=== PATIENT | male | born 1940 | race Caucasian/White ===

== ENCOUNTER 2016-06-01 09:17 | Day surgery (SDC) | payer OTHER ==
[~2016-06-01] VITALS: Ht 167.6 cm; Wt 97.0 kg
[~2016-06-01 09:17] MED LIST: ACETAMINOPHEN650 M6 PO; ADULT LOW DOSE81 M1 PO; ASPIR 8181 M1 PO; ASPIR-LOW81 MG PO; ASPIRIN81 M1 PO; ATORVASTATIN CA40 MG PO; ATROVENT 00.5 MG/2.5 IH; BABY ASPIRIN81 M1 PO; BUSPAR10 MG PO; CALCIUM; CALCIUM + D TA1 EACH PO; CALCIUM 500 +1 EAC4 PO; CALCIUM PO; CELEXA10 M1 PO; CELEXA10 MG PO; CELEXA20 MG PO; COLACE100 MG PO; COMPAZINE10 MG PO; CONSTULOSE10 GM/15 M PO; COUMADIN,JANTOVE1 MG PO; COUMADIN,JANTOVE2 MG PO; COUMADIN,JANTOVE5 MG PO; COUMADIN,JANTOVE6 MG PO; COUMADIN3 MG PO; COUMADIN4 MG PO; COUMADIN5 MG PO; Celexa PO; Coumadin dosing per PO; DEPAKOTE SPRIN125 MG PO; DEPAKOTE125 MG PO; DEPAKOTE500 MG PO; DIOVAN160 MG PO; DULCOLAX1 EACH PR; DULCOLAX10 MG PR; EMS NITROSTAT0.4 M1 S; EMS NITROSTAT0.4 M1 SL; FENOFIBRATE54 M1 NG; FENOFIBRATE54 M1 PO; FLULAVAL; FLULAVAL IM; HYDROCHLOROTH12.5 M1 PO; HYDROCHLOROTH12.5 M3 NG; HYDRODIURIL,O12.5 M2 PO; IMDUR60 MG PO; KEPPRA1000 MG PO; KEPPRA500 MG PO; KEPPRA750 MG PO; LABETALOL HCL100 MG PO; LEVETIRACETAM1000 MG PO; LEVETIRACETAM500 MG PO; LOFIBRA54 MG PO; LOPRESSOR100 M1 PO; LUBRICANT 0.5-015 ML BOTH EYES; Levaquin PO; Lopressor PO; MAXITROL EYE O3.5 GM BOTH EYES; MULTIVITAMIN1 EAC1 PO; MYLANTA LIQUID355 M1 PO; NITROGLYCERIN0.4 MG SL; NITROSTAT,NITR0.4 M1 SL; NITROSTAT0.4 MG SL; NORVASC5 MG PO; Normodyne,Trandate PO; OMEPRAZOLE20 MG PO; OMEPRAZOLE40 M1 PO; OMEPRAZOLE40 MG PO; OSCAL 250 W/VI250 MG PO; PEPTO BISMOL262 MG PO; PNEUMOVAX 230.5 ML IM; PRILOSEC40 MG PO; PROTONIX40 MG PO; PROVENTIL,2.5 MG/0.5 IH; PROVENTIL,2.5 MG/3 M IH; Prilosec PO; RESTASIS 01 DROP/0.4 BOTH EYES; SEROQUEL12.5 MG PO; SPIRIVA1 INHALATI IH; SUCRALFATE1 GM PO; SUDAFED30 MG PO; THERAGRAN1 TABLET PO; TOPROL XL100 MG PO; TRILIPIX45 MG PO; TYLENOL REGULA325 MG PO; TYLENOL325 M1 PO; Tylenol Regular Stre PO; VITAMIN D; WARFARIN SODIUM4 MG PO; WARFARIN SODIUM5 MG PO; ZOCOR10 MG PO; ZOCOR40 MG PO; Zocor PO; [UNRECOGNIZED DRUG - OTHER] PO
[2016-06-01] MEDS ORDERED: FERROUS SULFAT325 MG PO (09:53)
[2016-06-01] MEDS ORDERED: LASIX20 MG PO (09:55)
[2016-06-01] MEDS ORDERED: CALCITRIOL0.25 MCG PO (09:56)
[2016-06-01] MEDS ORDERED: TRAZODONE HCL50 MG PO (09:58)
[2016-06-01 10:03] LABS: HEMATOCRIT 29.7 % (38.0-50.0); MCH 33.7 PG (29.0-34.0); MCV 102.1 FL (86-99); MEAN PLAT.VOLUME 9.9 uM^3 (9.0-12.4); PLATELET COUNT 217 K/uL (156-360); RBC DIS.WIDTH-CV 13.4 % (11.8-14.6); RBC DIS.WIDTH-SD 48.1 % (39-53); RED BLOOD COUNT 2.91 M/uL (4.00-5.50); WHITE BLOOD COUNT 9.7 K/uL (4.1-10.2)
[2016-06-01] MEDS ORDERED: VITAMIN C500 M1 PO (10:04)
[2016-06-01] MEDS ORDERED: VITAMIN D31000 UNI2 PO (10:05)
[2016-06-01 10:15] LABS: INTER. NORMALIZED RATIO 1.3; PROTHROMBIN TIME 13.5 (9.2-11.2)
[2016-06-01 10:19] LABS: ANION GAP 12 MEQ/L (2-14); CHLORIDE 109 MEQ/L (99-109); GFR ESTIMATE (CALCULATED) 12 mL/min/; GLUCOSE 98 mg/dL (70-99); SAMPLE HEMOLYSIS CHECK 0; SAMPLE ICTERIC CHECK 0; SAMPLE LIPEMIA CHECK 0; SODIUM 141 MEQ/L (136-147); UREA NITROGEN (BUN) 38 mg/dL (9-23)
[2016-06-01 10:28] VITALS: BP 157/84
[2016-06-01 11:04] LABS: METH RESISTANT S AUREUS PCR POSITIVE (NEGATIVE)
[2016-06-01 11:05] LABS: PROBE CHECK PASS
[2016-06-01 14:29] VITALS: BP 125/65
== END 2016-06-01 15:35 ==
LOC: SDC 09:17
PROVIDERS: Surgery
PROC: 03180ZD Bypass Left Brachial Artery to Upper Arm Vein, Open Approach (ICD-10-PCS; principal; 2016-06-01)
DX: I12.0 Hypertensive chronic kidney disease with stage 5 chronic kidney disease or end stage renal disease (principal); N18.6 End stage renal disease; G40.909 Epilepsy, unspecified, not intractable, without status epilepticus; I25.10 Atherosclerotic heart disease of native coronary artery without angina pectoris; F03.90 Unspecified dementia, unspecified severity, without behavioral disturbance, psychotic disturbance, mood disturbance, and anxiety; Z86.73 Personal history of transient ischemic attack (TIA), and cerebral infarction without residual deficits
CPT/HCPCS: 80048; 85027; 85610; 87641; J0690; J1644; J2720; J3010

== ENCOUNTER 2016-07-05 16:30 | Inpatient (IN) | payer OTHER ==
[~2016-07-05] VITALS: Ht 167.6 cm; Wt 93.5 kg
[~2016-07-05 16:30] MED LIST changes: +CALCITRIOL0.25 MCG PO; +FERROUS SULFAT325 MG PO; +LASIX20 MG PO; +TRAZODONE HCL50 MG PO; +VITAMIN C500 M1 PO; +VITAMIN D31000 UNI2 PO
[2016-07-05 17:31] LABS: EOSINOPHIL (%) 0.6 % (0-5); EOSINOPHIL COUNT 0.1 K/uL (0-0.3); HEMATOCRIT 26.7 % (38.0-50.0); IMMATURE GRANULOCYTE (%) 1.2 % (0.0-0.7); IMMATURE GRANULOCYTE COUNT 0.1 K/uL; INSTRUMENT ABS NEUTROPHIL CT 5.9 K/uL; LYMPHOCYTE COUNT 1.6 K/uL (1.0-2.8); MCH 34.2 PG (29.0-34.0); MCHC 31.1 G/DL (30.0-36.0); MCV 109.9 FL (86-99); MONOCYTE COUNT 1.6 K/uL (0-0.8); NEUTROPHIL (%) 63.6 % (45-76); NEUTROPHIL COUNT 5.9 K/uL (1.8-6.4); PLATELET COUNT 172 K/uL (156-360); RBC DIS.WIDTH-SD 56.4 % (39-53); RED BLOOD COUNT 2.43 M/uL (4.00-5.50); WHITE BLOOD COUNT 9.3 K/uL (4.1-10.2)
[2016-07-05 17:39] LABS: CHLORIDE 112 mEq/L (99-109); POTASSIUM 4.3 mEq/L (3.7-5.4); SODIUM 145 mEq/L (136-147)
[2016-07-05 17:40] LABS: GLUCOSE 101 mg/dL (70-99)
[2016-07-05 17:42] LABS: ANION GAP 11 MEQ/L (2-14)
[2016-07-05 17:44] LABS: GFR ESTIMATE (CALCULATED) 10 mL/min/
[2016-07-05 17:45] LABS: UREA NITROGEN (BUN) 50 mg/dL (9-23)
[2016-07-05 17:52] LABS: TROP-I INTERPRETATION NEGATIVE; TROPONIN-I < 0.01 ng/mL (0.0-0.30)
[2016-07-05 17:53] LABS: PROTHROMBIN TIME 46.6 (9.2-11.2); PTT 59.7 (25-32)
[2016-07-05] MEDS ORDERED: CALCIUM 600 +1 EAC2 PO (17:56)
[2016-07-05] MEDS ORDERED: COUMADIN2 MG PO (17:57)
[2016-07-05 17:59] LABS: INTER. NORMALIZED RATIO 4.4
[2016-07-05] MEDS ORDERED: MIRALAX255 GM PO (18:00)
[2016-07-05] MEDS ORDERED: OMEPRAZOLE40 M1 PO (18:02)
[2016-07-05] MEDS ORDERED: MIRTAZAPINE7.5 MG PO (18:03)
[2016-07-05] MEDS ORDERED: COUMADIN3 MG PO (18:05)
[2016-07-05] MEDS ORDERED: REFRESH TEARS15 ML BOTH EYES (18:08)
[2016-07-05] MEDS ORDERED: DUONEB 2.5-0.5 M3 ML AEROSOL (18:09)
[2016-07-05 18:10] LABS: INFLUENZA A VIRAL ANTIGEN NEGATIVE; INFLUENZA B VIRAL ANTIGEN POSITIVE
[2016-07-05] MEDS ORDERED: BISACODYL SUPP10 MG PR (18:10)
[2016-07-05] MEDS ORDERED: MEPHYTON5 MG PO (18:11)
[2016-07-05] MEDS ORDERED: NORCO 5/3251 TABLET PO (18:12)
[2016-07-06] VITALS (8 sets, daily range): BP systolic 120–141; BP diastolic 60–72
[2016-07-06 06:05] LABS: INTER. NORMALIZED RATIO 4.6; PROTHROMBIN TIME 49.2 (9.2-11.2)
[2016-07-07] VITALS (9 sets, daily range): BP systolic 113–150; BP diastolic 59–88
[2016-07-07 07:14] LABS: INTER. NORMALIZED RATIO 2.9; PROTHROMBIN TIME 30.2 (9.2-11.2)
[2016-07-07 07:26] LABS: ALKALINE PHOSPHATASE 44 IU/L (3-129); ANION GAP 12 MEQ/L (2-14); CHLORIDE 112 MEQ/L (99-109); GFR ESTIMATE (CALCULATED) 12 mL/min/; GLUCOSE 98 mg/dL (70-99); MAGNESIUM 2.1 mg/dl (1.3-2.7); POTASSIUM 4.2 MEQ/L (3.7-5.4); SAMPLE HEMOLYSIS CHECK 0; SAMPLE ICTERIC CHECK 0; SAMPLE LIPEMIA CHECK 0; SODIUM 144 MEQ/L (136-147); TOTAL BILIRUBIN 0.3 MG/DL (0.0-1.0); UREA NITROGEN (BUN) 49 mg/dL (9-23)
[2016-07-07 08:46] LABS: HEMATOCRIT 24.4 % (38.0-50.0); MCH 33.9 PG (29.0-34.0); MCHC 30.7 G/DL (30.0-36.0); MCV 110.4 FL (86-99); MEAN PLAT.VOLUME 10.3 uM^3 (9.0-12.4); PLATELET COUNT 194 K/uL (156-360); RBC DIS.WIDTH-SD 56.1 % (39-53); RED BLOOD COUNT 2.21 M/uL (4.00-5.50); WHITE BLOOD COUNT 7.7 K/uL (4.1-10.2)
[2016-07-07 08:57] LABS: EOSINOPHIL (%) 4.3 % (0-5); EOSINOPHIL COUNT 0.3 K/uL (0-0.3); IMMATURE GRANULOCYTE COUNT 0.4 K/uL; INSTRUMENT ABS NEUTROPHIL CT 4.1 K/uL; LYMPHOCYTE COUNT 1.7 K/uL (1.0-2.8); MONOCYTE (%) 15.4 % (3-12); MONOCYTE COUNT 1.2 K/uL (0-0.8); NEUTROPHIL (%) 53.5 % (45-76); NEUTROPHIL COUNT 4.1 K/uL (1.8-6.4); NRBC (%) 0.4 /100 WBC (0-0)
[2016-07-07 20:13] LABS: HEMATOCRIT 25.3 % (38.0-50.0)
[2016-07-07 20:14] LABS: MCV 105.4 FL (86-99)
[2016-07-08 05:07] VITALS: BP 122/56
[2016-07-08 07:17] LABS: BASOPHIL COUNT 0.1 K/uL (0-0.1); EOSINOPHIL (%) 5.4 % (0-5); EOSINOPHIL COUNT 0.5 K/uL (0-0.3); HEMATOCRIT 25.3 % (38.0-50.0); IMMATURE GRANULOCYTE (%) 4.7 % (0.0-0.7); IMMATURE GRANULOCYTE COUNT 0.4 K/uL; INSTRUMENT ABS NEUTROPHIL CT 4.9 K/uL; LYMPHOCYTE COUNT 1.8 K/uL (1.0-2.8); MCH 32.8 PG (29.0-34.0); MCHC 30.8 G/DL (30.0-36.0); MCV 106.3 FL (86-99); MEAN PLAT.VOLUME 10.3 uM^3 (9.0-12.4); MONOCYTE (%) 12.4 % (3-12); MONOCYTE COUNT 1.1 K/uL (0-0.8); NEUTROPHIL (%) 55.8 % (45-76); NEUTROPHIL COUNT 4.9 K/uL (1.8-6.4); PLATELET COUNT 196 K/uL (156-360); RBC DIS.WIDTH-CV 17.6 % (11.8-14.6); RED BLOOD COUNT 2.38 M/uL (4.00-5.50); WHITE BLOOD COUNT 8.7 K/uL (4.1-10.2)
[2016-07-08 07:32] LABS: INTER. NORMALIZED RATIO 2.5
[2016-07-08 08:00] VITALS: BP 130/62
[2016-07-08 08:03] LABS: ALKALINE PHOSPHATASE 42 IU/L (3-129); ANION GAP 11 MEQ/L (2-14); CHLORIDE 115 MEQ/L (99-109); GFR ESTIMATE (CALCULATED) 11 mL/min/; GLUCOSE 81 mg/dL (70-99); POTASSIUM 4.4 MEQ/L (3.7-5.4); SAMPLE HEMOLYSIS CHECK 0; SAMPLE ICTERIC CHECK 0; SAMPLE LIPEMIA CHECK 0; SODIUM 147 MEQ/L (136-147); UREA NITROGEN (BUN) 51 mg/dL (9-23)
[2016-07-08 08:04] LABS: TOTAL BILIRUBIN 0.2 MG/DL (0.0-1.0)
[2016-07-08 12:00] VITALS: BP 122/60
[2016-07-08 16:00] VITALS: BP 136/62
[2016-07-08 20:29] VITALS: BP 136/62
[2016-07-09] VITALS (15 sets, daily range): BP systolic 115–161; BP diastolic 56–88
[2016-07-09 08:26] LABS: ALKALINE PHOSPHATASE 51 IU/L (3-129); ANION GAP 10 MEQ/L (2-14); CHLORIDE 113 MEQ/L (99-109); GFR ESTIMATE (CALCULATED) 11 mL/min/; GLUCOSE 95 mg/dL (70-99); POTASSIUM 4.3 MEQ/L (3.7-5.4); SAMPLE HEMOLYSIS CHECK 0; SAMPLE ICTERIC CHECK 0; SAMPLE LIPEMIA CHECK 0; SODIUM 144 MEQ/L (136-147); UREA NITROGEN (BUN) 49 mg/dL (9-23)
[2016-07-09 08:27] LABS: HEMATOCRIT 33.8 % (38.0-50.0); MCH 32.1 PG (29.0-34.0); MEAN PLAT.VOLUME 9.8 uM^3 (9.0-12.4); PLATELET COUNT 230 K/uL (156-360); RBC DIS.WIDTH-CV 17.6 % (11.8-14.6); RBC DIS.WIDTH-SD 65.4 % (39-53)
[2016-07-09 08:28] LABS: MCV 100.6 FL (86-99); RED BLOOD COUNT 3.36 M/uL (4.00-5.50); TOTAL BILIRUBIN 0.3 MG/DL (0.0-1.0)
[2016-07-09 08:35] LABS: INTER. NORMALIZED RATIO 2.2; PROTHROMBIN TIME 23.1 (9.2-11.2)
[2016-07-09 12:06] LABS: ABS NEUTROPHIL COUNT 5.8; ANISOCYTOSIS 1+; ATYPICAL LYMPHOCYTE 0.9 %; BAND NEUTROPHILS 0.9 % (0-8.0); EOSINOPHIL ABS CT 0.3; EOSINOPHILS 3.7 % (0-5.0); INSTRUMENT ABS NEUTROPHIL CT 5.2 K/uL; LYMPHOCYTES 15.9 % (15.0-45.0); METAMYELOCYTES 2.8 %; PLAT.SUFFICIENCY ADEQUATE; POLYCHROMASIA 1+; SEG.NEUTROPHILS 63.6 % (46.0-76.0)
[2016-07-10 04:09] VITALS: BP 138/76
[2016-07-10 08:29] VITALS: BP 122/94
[2016-07-10 09:07] LABS: HEMATOCRIT 33.1 % (38.0-50.0); MCH 32.4 PG (29.0-34.0); MCV 101.2 FL (86-99); MEAN PLAT.VOLUME 9.8 uM^3 (9.0-12.4); NRBC (%) 0.2 /100 WBC (0-0); PLATELET COUNT 226 K/uL (156-360); RBC DIS.WIDTH-CV 17.7 % (11.8-14.6); RBC DIS.WIDTH-SD 66.3 % (39-53); RED BLOOD COUNT 3.27 M/uL (4.00-5.50); WHITE BLOOD COUNT 8.8 K/uL (4.1-10.2)
[2016-07-10 09:30] LABS: INTER. NORMALIZED RATIO 1.7; PROTHROMBIN TIME 17.3 (9.2-11.2)
[2016-07-10 10:53] LABS: ANION GAP 11 MEQ/L (2-14); CHLORIDE 113 MEQ/L (99-109); GFR ESTIMATE (CALCULATED) 12 mL/min/; GLUCOSE 85 mg/dL (70-99); POTASSIUM 4.8 MEQ/L (3.7-5.4); SAMPLE HEMOLYSIS CHECK 0; SAMPLE ICTERIC CHECK 0; SAMPLE LIPEMIA CHECK 0; SODIUM 144 MEQ/L (136-147); UREA NITROGEN (BUN) 52 mg/dL (9-23)
[2016-07-10 12:29] VITALS: BP 139/62
[2016-07-10 16:53] VITALS: BP 135/72
[2016-07-10 20:37] VITALS: BP 143/68
[2016-07-10 23:51] VITALS: BP 118/58
[2016-07-11 04:16] VITALS: BP 149/70
[2016-07-11 07:35] LABS: HEMATOCRIT 34.2 % (38.0-50.0); MCH 31.7 PG (29.0-34.0); MCHC 31.3 G/DL (30.0-36.0); MCV 101.2 FL (86-99); MEAN PLAT.VOLUME 9.7 uM^3 (9.0-12.4); NRBC (%) 0.2 /100 WBC (0-0); PLATELET COUNT 246 K/uL (156-360); RBC DIS.WIDTH-CV 17.2 % (11.8-14.6); RBC DIS.WIDTH-SD 63.6 % (39-53); RED BLOOD COUNT 3.38 M/uL (4.00-5.50); WHITE BLOOD COUNT 8.9 K/uL (4.1-10.2)
[2016-07-11 07:44] LABS: INTER. NORMALIZED RATIO 1.9; PROTHROMBIN TIME 19.2 (9.2-11.2)
[2016-07-11 07:58] LABS: ANION GAP 10 MEQ/L (2-14); CHLORIDE 112 MEQ/L (99-109); GFR ESTIMATE (CALCULATED) 11 mL/min/; GLUCOSE 89 mg/dL (70-99); POTASSIUM 4.9 MEQ/L (3.7-5.4); SAMPLE HEMOLYSIS CHECK 0; SAMPLE ICTERIC CHECK 0; SAMPLE LIPEMIA CHECK 0; SODIUM 143 MEQ/L (136-147); UREA NITROGEN (BUN) 53 mg/dL (9-23)
[2016-07-11 08:00] VITALS: BP 151/82
[2016-07-11 12:00] VITALS: BP 167/80
[2016-07-11 16:00] VITALS: BP 120/62
[2016-07-11 20:00] VITALS: BP 136/65
[2016-07-12 00:13] VITALS: BP 132/84
[2016-07-12 04:00] VITALS: BP 130/64
[2016-07-12 07:27] LABS: ANION GAP 9 MEQ/L (2-14); CHLORIDE 111 MEQ/L (99-109); GFR ESTIMATE (CALCULATED) 12 mL/min/; GLUCOSE 76 mg/dL (70-99); SAMPLE HEMOLYSIS CHECK 0; SAMPLE ICTERIC CHECK 0; SAMPLE LIPEMIA CHECK 0; SODIUM 141 MEQ/L (136-147); UREA NITROGEN (BUN) 61 mg/dL (9-23)
[2016-07-12 07:35] LABS: INTER. NORMALIZED RATIO 2.4; PROTHROMBIN TIME 24.6 (9.2-11.2)
[2016-07-12 08:00] VITALS: BP 120/67
[2016-07-12 12:26] VITALS: BP 128/60
== END 2016-07-12 13:10 | DRG 189 ==
LOC: EME 16:30 → EDOF 21:55 → 4SOUTH 21:55
PROVIDERS: Emergency Medicine; Internal Medicine; Internal Medicine Nephrology
PROC: 30233N1 Transfusion of Nonautologous Red Blood Cells into Peripheral Vein, Percutaneous Approach (ICD-10-PCS; principal; 2016-07-09)
DX: J96.91 Respiratory failure, unspecified with hypoxia (principal); J10.00 Influenza due to other identified influenza virus with unspecified type of pneumonia; N17.9 Acute kidney failure, unspecified; I12.0 Hypertensive chronic kidney disease with stage 5 chronic kidney disease or end stage renal disease; I69.354 Hemiplegia and hemiparesis following cerebral infarction affecting left non-dominant side; N18.5 Chronic kidney disease, stage 5; R80.9 Proteinuria, unspecified; I25.10 Atherosclerotic heart disease of native coronary artery without angina pectoris; J44.9 Chronic obstructive pulmonary disease, unspecified; I25.2 Old myocardial infarction; K21.9 Gastro-esophageal reflux disease without esophagitis; I48.2 Chronic atrial fibrillation; F32.9 Major depressive disorder, single episode, unspecified; F41.9 Anxiety disorder, unspecified; E78.5 Hyperlipidemia, unspecified; J18.9 Pneumonia, unspecified organism; I50.9 Heart failure, unspecified; D64.9 Anemia, unspecified; E11.22 Type 2 diabetes mellitus with diabetic chronic kidney disease
CPT/HCPCS: 71010; 71020; 80048; 80053; 80069; 82272; 83735; 84100; 84484; 85014; 85018; 85025; 85027; 85610; 85730; 86850; 86900; 86901; 86920; 87040; 87502; 92610 GN; 93005; 94640; 94640 76; 94760; 94799; 99202; 99281; 99285; J0456; J0692; J0881; J1940; J1956; J3370; J7050; P9016

== ENCOUNTER 2016-09-01 15:05 | Observation (INO) | payer OTHER ==
[~2016-09-01] VITALS: Ht 167.6 cm; Wt 90.1 kg
[~2016-09-01 15:05] MED LIST changes: +BISACODYL SUPP10 MG PR; +CALCIUM 600 +1 EAC2 PO; +COUMADIN2 MG PO; +DUONEB 2.5-0.5 M3 ML AEROSOL; +MEPHYTON5 MG PO; +MIRALAX255 GM PO; +MIRTAZAPINE7.5 MG PO; +NORCO 5/3251 TABLET PO; +REFRESH TEARS15 ML BOTH EYES
[2016-09-01 15:45] LABS: HEMATOCRIT 33.6 % (38.0-50.0); MCH 33.8 PG (29.0-34.0); MCHC 32.7 G/DL (30.0-36.0); MCV 103.4 FL (86-99); MEAN PLAT.VOLUME 9.4 uM^3 (9.0-12.4); NRBC (%) 0.3 /100 WBC (0-0); PLATELET COUNT 301 K/uL (156-360); RBC DIS.WIDTH-CV 16.5 % (11.8-14.6); RBC DIS.WIDTH-SD 61.1 % (39-53); RED BLOOD COUNT 3.25 M/uL (4.00-5.50); WHITE BLOOD COUNT 11.5 K/uL (4.1-10.2)
[2016-09-01 15:53] LABS: CHLORIDE 97 mEq/L (99-109); SODIUM 137 mEq/L (136-147)
[2016-09-01 15:55] LABS: GLUCOSE 111 mg/dL (70-99)
[2016-09-01 15:56] LABS: ANION GAP 13 MEQ/L (2-14)
[2016-09-01 15:59] LABS: GFR ESTIMATE (CALCULATED) 18 mL/min/
[2016-09-01 16:00] LABS: UREA NITROGEN (BUN) 15 mg/dL (9-23)
[2016-09-01 16:07] LABS: TROP-I INTERPRETATION NEGATIVE; TROPONIN-I 0.02 ng/mL (0.0-0.30)
[2016-09-01] MEDS ORDERED: AMLODIPINE BESYL5 MG PO (17:06)
[2016-09-01] MEDS ORDERED: ROCEPHIN1000 MG IM (17:09)
[2016-09-01] MEDS ORDERED: COUMADIN1 MG PO (17:10)
[2016-09-01] MEDS ORDERED: NORCO 5/3251 TABLET PO (17:13)
[2016-09-01 21:05] VITALS: BP 121/59
[2016-09-01 23:33] VITALS: BP 94/54
[2016-09-02 00:07] LABS: TROP-I INTERPRETATION NEGATIVE; TROPONIN-I < 0.01 ng/mL (0.0-0.30)
[2016-09-02 03:58] VITALS: BP 124/58
[2016-09-02 07:58] LABS: BASOPHIL COUNT 0.1 K/uL (0-0.1); EOSINOPHIL (%) 3.7 % (0-5); EOSINOPHIL COUNT 0.3 K/uL (0-0.3); HEMATOCRIT 30.4 % (38.0-50.0); IMMATURE GRANULOCYTE (%) 1.2 % (0.0-0.7); IMMATURE GRANULOCYTE COUNT 0.1 K/uL; INSTRUMENT ABS NEUTROPHIL CT 5.2 K/uL; LYMPHOCYTE COUNT 2.3 K/uL (1.0-2.8); MCH 33.6 PG (29.0-34.0); MCHC 31.9 G/DL (30.0-36.0); MCV 105.2 FL (86-99); MEAN PLAT.VOLUME 9.5 uM^3 (9.0-12.4); MONOCYTE (%) 12.2 % (3-12); MONOCYTE COUNT 1.1 K/uL (0-0.8); NEUTROPHIL (%) 56.7 % (45-76); NEUTROPHIL COUNT 5.2 K/uL (1.8-6.4); NRBC (%) 0.2 /100 WBC (0-0); PLATELET COUNT 271 K/uL (156-360); RBC DIS.WIDTH-CV 16.5 % (11.8-14.6); RBC DIS.WIDTH-SD 62.4 % (39-53); RED BLOOD COUNT 2.89 M/uL (4.00-5.50); WHITE BLOOD COUNT 9.1 K/uL (4.1-10.2)
[2016-09-02 08:17] LABS: ALKALINE PHOSPHATASE 76 IU/L (3-129); ANION GAP 13 MEQ/L (2-14); CHLORIDE 97 MEQ/L (99-109); GFR ESTIMATE (CALCULATED) 12 mL/min/; GLUCOSE 95 mg/dL (70-99); POTASSIUM 4.5 MEQ/L (3.7-5.4); SAMPLE HEMOLYSIS CHECK 0; SAMPLE ICTERIC CHECK 0; SAMPLE LIPEMIA CHECK 0; SODIUM 139 MEQ/L (136-147); TOTAL BILIRUBIN 0.2 MG/DL (0.0-1.0); TROP-I INTERPRETATION NEGATIVE; TROPONIN-I < 0.01 ng/mL (0.0-0.30)
[2016-09-02 08:19] LABS: UREA NITROGEN (BUN) 27 mg/dL (9-23)
[2016-09-02 08:30] VITALS: BP 110/54
[2016-09-02 11:19] VITALS: BP 90/50
[2016-09-02 11:31] LABS: METH RESISTANT S AUREUS PCR POSITIVE (NEGATIVE)
[2016-09-02 11:34] LABS: PROBE CHECK PASS
[2016-09-02 15:38] VITALS: BP 141/60
[2016-09-02 17:06] LABS: TROP-I INTERPRETATION NEGATIVE; TROPONIN-I < 0.01 ng/mL (0.0-0.30)
[2016-09-02 19:24] VITALS: BP 110/60
== END 2016-09-02 21:07 ==
LOC: EME 15:05 → 5WEST 19:39 → EDOF 19:39 → 5WEST 20:45
PROVIDERS: Emergency Medicine; Internal Medicine
DX: R07.89 Other chest pain (principal); I48.2 Chronic atrial fibrillation; R06.02 Shortness of breath; I12.0 Hypertensive chronic kidney disease with stage 5 chronic kidney disease or end stage renal disease; N18.6 End stage renal disease; Z99.2 Dependence on renal dialysis; J06.9 Acute upper respiratory infection, unspecified; I69.354 Hemiplegia and hemiparesis following cerebral infarction affecting left non-dominant side; D63.1 Anemia in chronic kidney disease
CPT/HCPCS: 71010; 80048; 80053; 83880; 84484; 85025; 85027; 85610; 87641; 93005; 94640; 94640 76; 94799; 99202; 99281; 99285; G0378; J0696

== ENCOUNTER 2016-10-04 11:18 | Observation (INO) | payer OTHER ==
[~2016-10-04] VITALS: Ht 167.6 cm; Wt 91.0 kg
[~2016-10-04 11:18] MED LIST changes: +AMLODIPINE BESYL5 MG PO; +COUMADIN1 MG PO; +ROCEPHIN1000 MG IM
[2016-10-04 13:29] LABS: BASOPHIL COUNT 0.1 K/uL (0-0.1); EOSINOPHIL (%) 4.7 % (0-5); EOSINOPHIL COUNT 0.5 K/uL (0-0.3); HEMATOCRIT 30.3 % (38.0-50.0); IMMATURE GRANULOCYTE (%) 1.9 % (0.0-0.7); IMMATURE GRANULOCYTE COUNT 0.2 K/uL; INSTRUMENT ABS NEUTROPHIL CT 5.3 K/uL; LYMPHOCYTE COUNT 2.5 K/uL (1.0-2.8); MCH 35.1 PG (29.0-34.0); MCHC 32.7 G/DL (30.0-36.0); MCV 107.4 FL (86-99); MEAN PLAT.VOLUME 9.1 uM^3 (9.0-12.4); MONOCYTE (%) 12.8 % (3-12); MONOCYTE COUNT 1.3 K/uL (0-0.8); NEUTROPHIL COUNT 5.3 K/uL (1.8-6.4); NRBC (%) 0.4 /100 WBC (0-0); PLATELET COUNT 268 K/uL (156-360); RBC DIS.WIDTH-CV 15.1 % (11.8-14.6); RBC DIS.WIDTH-SD 58.9 % (39-53); RED BLOOD COUNT 2.82 M/uL (4.00-5.50); WHITE BLOOD COUNT 9.8 K/uL (4.1-10.2)
[2016-10-04 13:37] LABS: CHLORIDE 100 mEq/L (99-109); POTASSIUM 4.3 mEq/L (3.7-5.4); SODIUM 140 mEq/L (136-147)
[2016-10-04 13:39] LABS: GLUCOSE 80 mg/dL (70-99)
[2016-10-04 13:40] LABS: ANION GAP 14 MEQ/L (2-14); PROTHROMBIN TIME 36.5 (9.2-11.2); PTT 43.9 (25-32)
[2016-10-04 13:43] LABS: GFR ESTIMATE (CALCULATED) 8 mL/min/
[2016-10-04 13:44] LABS: UREA NITROGEN (BUN) 47 mg/dL (9-23)
[2016-10-04 13:45] LABS: CREATINE KINASE 13 IU/L (1-294); TOTAL CK 13 IU/L (1-294)
[2016-10-04 13:46] LABS: INTER. NORMALIZED RATIO 3.4
[2016-10-04 13:51] LABS: TROP-I INTERPRETATION NEGATIVE; TROPONIN-I < 0.01 ng/mL (0.0-0.30)
[2016-10-04 13:52] LABS: CK-MB 0.7 ng/mL (0.0-4.9)
[2016-10-04] MEDS ORDERED: WARFARIN SODIUM5 MG PO (16:18)
[2016-10-04] MEDS ORDERED: MIRTAZAPINE15 MG PO (16:21)
[2016-10-04] MEDS ORDERED: KEPPRA500 MG PO (16:23)
[2016-10-04] MEDS ORDERED: NORCO 5/3251 TABLET PO (16:26)
[2016-10-04 20:18] LABS: TROP-I INTERPRETATION NEGATIVE; TROPONIN-I < 0.01 ng/mL (0.0-0.30)
[2016-10-04 20:30] VITALS: BP 112/65
[2016-10-04 23:31] VITALS: BP 100/50
[2016-10-05 02:28] LABS: TROP-I INTERPRETATION NEGATIVE; TROPONIN-I < 0.01 ng/mL (0.0-0.30)
[2016-10-05 03:07] VITALS: BP 139/63
[2016-10-05 07:46] LABS: HEMATOCRIT 28.6 % (38.0-50.0); MCH 35.7 PG (29.0-34.0); MCHC 32.9 G/DL (30.0-36.0); MCV 108.7 FL (86-99); MEAN PLAT.VOLUME 9.1 uM^3 (9.0-12.4); NRBC (%) 0.3 /100 WBC (0-0); PLATELET COUNT 257 K/uL (156-360); RBC DIS.WIDTH-CV 15.6 % (11.8-14.6); RBC DIS.WIDTH-SD 60.8 % (39-53); RED BLOOD COUNT 2.63 M/uL (4.00-5.50); WHITE BLOOD COUNT 9.3 K/uL (4.1-10.2)
[2016-10-05 07:54] LABS: INTER. NORMALIZED RATIO 3.3; PROTHROMBIN TIME 34.4 (9.2-11.2)
[2016-10-05 08:12] LABS: ANION GAP 14 MEQ/L (2-14); CHLORIDE 100 MEQ/L (99-109); GFR ESTIMATE (CALCULATED) 12 mL/min/; GLUCOSE 75 mg/dL (70-99); POTASSIUM 4.5 MEQ/L (3.7-5.4); SAMPLE HEMOLYSIS CHECK 0; SAMPLE ICTERIC CHECK 0; SAMPLE LIPEMIA CHECK 0; SODIUM 142 MEQ/L (136-147); UREA NITROGEN (BUN) 26 mg/dL (9-23)
[2016-10-05 08:15] LABS: TROP-I INTERPRETATION NEGATIVE; TROPONIN-I 0.01 ng/mL (0.0-0.30)
[2016-10-05 09:20] VITALS: BP 114/57
[2016-10-05 12:00] VITALS: BP 116/63
[2016-10-05 16:00] VITALS: BP 113/63
== END 2016-10-05 17:17 ==
LOC: EME 11:18 → 5WEST 14:00 → EDOF 14:00 → 5WEST 19:11
PROVIDERS: Emergency Medicine; Family Medicine
PROC: 5A1D00Z (ICD-10-PCS; principal; 2016-10-04)
DX: R07.9 Chest pain, unspecified (principal); I12.0 Hypertensive chronic kidney disease with stage 5 chronic kidney disease or end stage renal disease; N18.6 End stage renal disease; Z99.2 Dependence on renal dialysis; I48.0 Paroxysmal atrial fibrillation; I69.354 Hemiplegia and hemiparesis following cerebral infarction affecting left non-dominant side; I69.392 Facial weakness following cerebral infarction; I69.320 Aphasia following cerebral infarction; L03.114 Cellulitis of left upper limb; K21.9 Gastro-esophageal reflux disease without esophagitis; J44.9 Chronic obstructive pulmonary disease, unspecified; E78.5 Hyperlipidemia, unspecified; I25.2 Old myocardial infarction; G40.909 Epilepsy, unspecified, not intractable, without status epilepticus; D64.9 Anemia, unspecified; G89.4 Chronic pain syndrome; K59.00 Constipation, unspecified; Z79.01 Long term (current) use of anticoagulants; F32.9 Major depressive disorder, single episode, unspecified
CPT/HCPCS: 71010; 80048; 82550; 82553; 84484; 85025; 85027; 85610; 85730; 93005; 99281; 99285; G0257; G0378

== ENCOUNTER 2016-12-10 15:35 | Observation (INO) | payer OTHER ==
[~2016-12-10] VITALS: Ht 167.6 cm; Wt 99.1 kg
[~2016-12-10 15:35] MED LIST changes: +MIRTAZAPINE15 MG PO
[2016-12-10 16:05] LABS: BASOPHIL COUNT 0.1 K/uL (0-0.1); EOSINOPHIL COUNT 0.5 K/uL (0-0.3); HEMATOCRIT 36.2 % (38.0-50.0); IMMATURE GRANULOCYTE (%) 0.5 % (0.0-0.7); INSTRUMENT ABS NEUTROPHIL CT 3.5 K/uL; LYMPHOCYTE COUNT 2.5 K/uL (1.0-2.8); MCH 35.6 PG (29.0-34.0); MCHC 33.1 G/DL (30.0-36.0); MCV 107.4 FL (86-99); MEAN PLAT.VOLUME 9.1 uM^3 (9.0-12.4); MONOCYTE (%) 12.1 % (3-12); MONOCYTE COUNT 0.9 K/uL (0-0.8); NEUTROPHIL (%) 46.6 % (45-76); NEUTROPHIL COUNT 3.5 K/uL (1.8-6.4); PLATELET COUNT 257 K/uL (156-360); RBC DIS.WIDTH-CV 14.1 % (11.8-14.6); RED BLOOD COUNT 3.37 M/uL (4.00-5.50); WHITE BLOOD COUNT 7.4 K/uL (4.1-10.2)
[2016-12-10 16:11] LABS: POINT-OF-CARE METER ID UU13113702
[2016-12-10 16:16] LABS: AMYLASE 49 IU/L (1-118); CHLORIDE 95 mEq/L (99-109); POTASSIUM 4.4 mEq/L (3.7-5.4); SODIUM 137 mEq/L (136-147)
[2016-12-10 16:18] LABS: GLUCOSE 87 mg/dL (70-99)
[2016-12-10 16:19] LABS: ANION GAP 12 MEQ/L (2-14)
[2016-12-10 16:21] LABS: SERUM ETHYL ALCOHOL < 10 mg/dL
[2016-12-10 16:22] LABS: GFR ESTIMATE (CALCULATED) 18 mL/min/; UREA NITROGEN (BUN) 19 mg/dL (9-23)
[2016-12-10 16:25] LABS: LIPASE 55 U/L (1.0-51.0)
[2016-12-10 16:29] LABS: TROP-I INTERPRETATION NEGATIVE; TROPONIN-I 0.01 ng/mL (0.0-0.30)
[2016-12-10 16:30] LABS: INTER. NORMALIZED RATIO 2.9; PROTHROMBIN TIME 32.7 SEC (10.2-12.9)
[2016-12-10 16:32] LABS: PTT 43.5 SEC (25-37)
[2016-12-10] MEDS ORDERED: ISOSORBIDE DINI30 MG PO (19:23)
[2016-12-10] MEDS ORDERED: LOPRESSOR50 MG PO (19:23)
[2016-12-10] MEDS ORDERED: CALPHRON667 MG PO (19:26)
[2016-12-10 22:17] VITALS: BP 110/54
[2016-12-11 00:20] VITALS: BP 130/63
[2016-12-11 01:30] VITALS: BP 133/74
[2016-12-11 04:20] VITALS: BP 128/57
[2016-12-11 05:33] LABS: HEMATOCRIT 33.8 % (38.0-50.0); MCH 35.9 PG (29.0-34.0); MCHC 33.1 G/DL (30.0-36.0); MCV 108.3 FL (86-99); MEAN PLAT.VOLUME 9.3 uM^3 (9.0-12.4); PLATELET COUNT 240 K/uL (156-360); RBC DIS.WIDTH-CV 14.5 % (11.8-14.6); RBC DIS.WIDTH-SD 55.5 % (39-53); RED BLOOD COUNT 3.12 M/uL (4.00-5.50); WHITE BLOOD COUNT 7.1 K/uL (4.1-10.2)
[2016-12-11 05:38] LABS: METH RESISTANT S AUREUS PCR POSITIVE (NEGATIVE)
[2016-12-11 05:40] LABS: PROBE CHECK PASS
[2016-12-11 05:56] LABS: ALKALINE PHOSPHATASE 72 IU/L (3-129); ANION GAP 10 MEQ/L (2-14); CHLORIDE 98 MEQ/L (99-109); GLUCOSE 73 mg/dL (70-99); SAMPLE HEMOLYSIS CHECK 0; SAMPLE ICTERIC CHECK 0; SAMPLE LIPEMIA CHECK 0; SODIUM 140 MEQ/L (136-147); TOTAL BILIRUBIN 0.3 MG/DL (0.0-1.0)
[2016-12-11 05:58] LABS: GFR ESTIMATE (CALCULATED) 12 mL/min/; POTASSIUM 5.4 MEQ/L (3.7-5.4); UREA NITROGEN (BUN) 31 mg/dL (9-23)
[2016-12-11 06:02] LABS: INTER. NORMALIZED RATIO 2.8; PROTHROMBIN TIME 31.5 SEC (10.2-12.9)
[2016-12-11 07:58] VITALS: BP 124/58
[2016-12-11 12:08] VITALS: BP 109/52
[2016-12-11] MEDS ORDERED: FUROSEMIDE20 MG PO (14:57)
[2016-12-11] MEDS ORDERED: DUONEB 2.5-0.5 M3 ML AEROSOL (14:57)
[2016-12-11] MEDS ORDERED: ASCORBIC ACID500 M3 PO (14:57)
[2016-12-11] MEDS ORDERED: HYDROCODON-ACE1 EAC7 PO (14:57)
[2016-12-11] MEDS ORDERED: AMLODIPINE BESYL5 MG PO (14:57)
== END 2016-12-11 16:41 ==
LOC: EME → EDBD 15:35 → EDOF 19:40 → ENRESERV 19:43 → 5WEST 20:51
PROVIDERS: Emergency Medicine; Internal Medicine
DX: G45.9 Transient cerebral ischemic attack, unspecified (principal); R55 Syncope and collapse; I48.2 Chronic atrial fibrillation; Z79.01 Long term (current) use of anticoagulants; I12.0 Hypertensive chronic kidney disease with stage 5 chronic kidney disease or end stage renal disease; E11.22 Type 2 diabetes mellitus with diabetic chronic kidney disease; N18.6 End stage renal disease; Z99.2 Dependence on renal dialysis; I69.354 Hemiplegia and hemiparesis following cerebral infarction affecting left non-dominant side; E03.9 Hypothyroidism, unspecified; N40.0 Benign prostatic hyperplasia without lower urinary tract symptoms; E66.9 Obesity, unspecified; Z68.35 Body mass index [BMI] 35.0-35.9, adult; G25.81 Restless legs syndrome; G89.4 Chronic pain syndrome; E78.5 Hyperlipidemia, unspecified; G40.909 Epilepsy, unspecified, not intractable, without status epilepticus; M19.90 Unspecified osteoarthritis, unspecified site; Z79.82 Long term (current) use of aspirin; Z74.01 Bed confinement status; Z88.0 Allergy status to penicillin; Z91.018 Allergy to other foods
CPT/HCPCS: 70450; 71010; 80048; 80053; 81003; 82150; 82948; 83690; 84484; 85025; 85027; 85610; 85730; 86850; 86900; 86901; 87641; 93005; 93880; 99202; 99281; 99285; G0378; G0480

== ENCOUNTER 2016-12-31 03:32 | Emergency (ER) | payer OTHER ==
[~2016-12-31] VITALS: Ht 167.6 cm; Wt 100.0 kg
[~2016-12-31 03:32] MED LIST changes: +ASCORBIC ACID500 M3 PO; +CALPHRON667 MG PO; +FUROSEMIDE20 MG PO; +HYDROCODON-ACE1 EAC7 PO; +ISOSORBIDE DINI30 MG PO; +LOPRESSOR50 MG PO
[2016-12-31 04:21] LABS: HEMATOCRIT 35.3 % (38.0-50.0); MCH 35.8 PG (29.0-34.0); MCHC 33.7 G/DL (30.0-36.0); MCV 106.3 FL (86-99); MEAN PLAT.VOLUME 9.2 uM^3 (9.0-12.4); NRBC (%) 0.2 /100 WBC (0-0); PLATELET COUNT 233 K/uL (156-360); RBC DIS.WIDTH-CV 14.7 % (11.8-14.6); RBC DIS.WIDTH-SD 57.9 % (39-53); RED BLOOD COUNT 3.32 M/uL (4.00-5.50); WHITE BLOOD COUNT 12.1 K/uL (4.1-10.2)
[2016-12-31 04:33] LABS: CHLORIDE 100 mEq/L (99-109); SODIUM 140 mEq/L (136-147)
[2016-12-31 04:34] LABS: GLUCOSE 109 mg/dL (70-99)
[2016-12-31 04:36] LABS: ANION GAP 18 MEQ/L (2-14)
[2016-12-31 04:38] LABS: GFR ESTIMATE (CALCULATED) 8 mL/min/
[2016-12-31 04:39] LABS: UREA NITROGEN (BUN) 47 mg/dL (9-23)
[2016-12-31 04:43] LABS: TROP-I INTERPRETATION NEGATIVE; TROPONIN-I 0.01 ng/mL (0.0-0.30)
[2016-12-31] MEDS ORDERED: ZITHROMAX Z-PA250 MG PO (05:30)
[2016-12-31 07:36] VITALS: BP 111/51
== END 2016-12-31 09:12 ==
LOC: EME → EDBD 03:32 → EME 03:32
PROVIDERS: Emergency Medicine
DX: I11.0 Hypertensive heart disease with heart failure (principal); I50.9 Heart failure, unspecified; J44.0 Chronic obstructive pulmonary disease with (acute) lower respiratory infection; J20.9 Acute bronchitis, unspecified; I12.0 Hypertensive chronic kidney disease with stage 5 chronic kidney disease or end stage renal disease; N18.6 End stage renal disease; Z99.2 Dependence on renal dialysis; F03.90 Unspecified dementia, unspecified severity, without behavioral disturbance, psychotic disturbance, mood disturbance, and anxiety; I25.10 Atherosclerotic heart disease of native coronary artery without angina pectoris; I25.2 Old myocardial infarction; E78.5 Hyperlipidemia, unspecified; K21.9 Gastro-esophageal reflux disease without esophagitis; I73.9 Peripheral vascular disease, unspecified; Z86.73 Personal history of transient ischemic attack (TIA), and cerebral infarction without residual deficits; Z79.01 Long term (current) use of anticoagulants; Z79.82 Long term (current) use of aspirin
CPT/HCPCS: 71010; 80048; 83880; 84484; 85027; 93005; 99281; 99285; J7644

== ENCOUNTER 2017-05-04 15:17 | Inpatient (IN) | payer OTHER ==
[~2017-05-04] VITALS: Ht 167.6 cm; Wt 98.5 kg
[~2017-05-04 15:17] MED LIST changes: +ZITHROMAX Z-PA250 MG PO
[2017-05-04 16:30] LABS: BASOPHIL (%) 0.7 % (0-1); BASOPHIL COUNT 0.1 K/uL (0-0.1); EOSINOPHIL (%) 1.9 % (0-5); EOSINOPHIL COUNT 0.2 K/uL (0-0.3); HEMATOCRIT 28.2 % (38.0-50.0); HEMOGLOBIN 9.5 G/DL (12.5-16.6); IMMATURE GRANULOCYTE (%) 0.6 % (0.0-0.7); LYMPHOCYTE (%) 17.4 % (15-42); LYMPHOCYTE COUNT 1.7 K/uL (1.0-2.8); MCH 36.7 PG (29.0-34.0); MCHC 33.7 G/DL (30.0-36.0); MCV 108.9 FL (86-99); MONOCYTE (%) 9.6 % (3-12); MONOCYTE COUNT 0.9 K/uL (0-0.8); NEUTROPHIL (%) 69.8 % (45-76); NEUTROPHIL COUNT 6.8 K/uL (1.8-6.4); PLATELET COUNT 253 K/uL (156-360); RBC DIS.WIDTH-CV 13.9 % (11.8-14.6); RBC DIS.WIDTH-SD 55.5 % (39-53); RED BLOOD COUNT 2.59 M/uL (4.00-5.50); WHITE BLOOD COUNT 9.7 K/uL (4.1-10.2)
[2017-05-04 16:43] LABS: INTER. NORMALIZED RATIO 3.2
[2017-05-04 16:46] LABS: PTT 39.4 SEC (25-37)
[2017-05-04 16:48] LABS: ALBUMIN 3.5 g/dL (3.2-4.8); CHLORIDE 98 mEq/L (99-109); POTASSIUM 4.1 mEq/L (3.7-5.4); SODIUM 139 mEq/L (136-147)
[2017-05-04 16:49] LABS: BASE EXCESS 7.5 mEq/L (-3 to +3); COMMENTS - BLOOD GASES +C; METHEMOGLOBIN 0.5 % (0-1.5); O2 FLOW 2 L/MIN; PCO2 44 mm Hg (35-45); PO2 70 mm Hg (80-100); SITE RR +A; pH 7.47 (7.35-7.45)
[2017-05-04 16:50] LABS: DEVICE NC; TOTAL RESP RATE 20 resp/min
[2017-05-04 16:50] LABS: GLUCOSE 131 mg/dL (70-99); TOTAL PROTEIN 6.3 g/dL (6.4-8.3)
[2017-05-04 16:52] LABS: TOTAL BILIRUBIN 0.4 mg/dL (0.0-1.0)
[2017-05-04 16:54] LABS: ALKALINE PHOSPHATASE 77 IU/L (3-129); CREATININE 4.7 mg/dL (0.6-1.3); GFR ESTIMATE (CALCULATED) 13 mL/min/ (58.99-99999)
[2017-05-04 16:55] LABS: AST (GOT) 15 IU/L (2-34); UREA NITROGEN (BUN) 20 mg/dL (9-23)
[2017-05-04 16:56] LABS: DIRECT BILIRUBIN 0.2 mg/dL (0.0-0.3)
[2017-05-04 16:57] LABS: ALT (GPT) 13 IU/L (3-49); LIPASE 41 U/L (1.0-51.0)
[2017-05-04 16:58] LABS: TROP-I INTERPRETATION NEGATIVE; TROPONIN-I < 0.01 ng/mL (0.0-0.30)
[2017-05-04] MEDS ORDERED: ASPIRIN81 M2 PO (18:29)
[2017-05-04] MEDS ORDERED: LIPITOR40 MG PO (18:31)
[2017-05-04] MEDS ORDERED: CELEXA20 MG PO (18:32)
[2017-05-04] MEDS ORDERED: COUMADIN6 MG PO (18:35)
[2017-05-04] MEDS ORDERED: DIALYVITE 3,001 EACH PO (18:37)
[2017-05-04] MEDS ORDERED: ISOSORBIDE DINI30 MG PO (18:42)
[2017-05-04] MEDS ORDERED: LASIX20 MG PO (18:43)
[2017-05-04] MEDS ORDERED: LEVAQUIN500 MG PO (18:46)
[2017-05-04] MEDS ORDERED: LOPRESSOR50 MG PO (18:47)
[2017-05-04] MEDS ORDERED: MIRTAZAPINE15 MG PO (18:49)
[2017-05-04] MEDS ORDERED: OMEPRAZOLE40 M1 PO (18:51)
[2017-05-04] MEDS ORDERED: BUSPAR10 MG PO (18:52)
[2017-05-04] MEDS ORDERED: VITAMIN D31000 UNI2 PO (18:53)
[2017-05-04] MEDS ORDERED: KEPPRA500 MG PO (18:55)
[2017-05-04] MEDS ORDERED: ASCORBIC ACID500 M3 PO (18:57)
[2017-05-04] MEDS ORDERED: PROBIOTIC250 MG PO (18:57)
[2017-05-04] MEDS ORDERED: CALCIUM ACETAT667 MG PO (19:03)
[2017-05-04] MEDS ORDERED: ACETAMINOPHEN325 M1 PO (19:06)
[2017-05-04] MEDS ORDERED: NORCO 5/3251 TABLET PO (19:07)
[2017-05-04] MEDS ORDERED: NITROSTAT0.4 MG SL (19:08)
[2017-05-04 21:44] VITALS: BP 116/57
[2017-05-04 23:55] VITALS: BP 95/50
[2017-05-05 04:17] VITALS: BP 106/57
[2017-05-05 05:57] LABS: HEMATOCRIT 28.1 % (38.0-50.0); HEMOGLOBIN 9.2 G/DL (12.5-16.6); MCH 36.4 PG (29.0-34.0); MCHC 32.7 G/DL (30.0-36.0); MCV 111.1 FL (86-99); PLATELET COUNT 234 K/uL (156-360); RBC DIS.WIDTH-CV 13.8 % (11.8-14.6); RBC DIS.WIDTH-SD 55.8 % (39-53); RED BLOOD COUNT 2.53 M/uL (4.00-5.50); WHITE BLOOD COUNT 7.3 K/uL (4.1-10.2)
[2017-05-05 06:10] LABS: INTER. NORMALIZED RATIO 3.2
[2017-05-05 06:23] LABS: CHLORIDE 100 MEQ/L (99-109); CREATININE 5.9 MG/DL (0.6-1.3); GFR ESTIMATE (CALCULATED) 10 mL/min/ (58.99-99999); GLUCOSE 126 mg/dL (70-99); POTASSIUM 4.4 MEQ/L (3.7-5.4); SODIUM 140 MEQ/L (136-147); UREA NITROGEN (BUN) 28 mg/dL (9-23)
[2017-05-05 07:36] VITALS: BP 111/54
[2017-05-05 12:22] VITALS: BP 115/53
[2017-05-05 15:38] VITALS: BP 99/51
[2017-05-05 20:01] VITALS: BP 105/56
[2017-05-05 23:54] VITALS: BP 130/65
[2017-05-06 03:23] VITALS: BP 122/54
[2017-05-06 07:36] VITALS: BP 136/89
[2017-05-06 09:33] LABS: BASOPHIL (%) 0.6 % (0-1); EOSINOPHIL (%) 5.9 % (0-5); EOSINOPHIL COUNT 0.4 K/uL (0-0.3); HEMATOCRIT 26.4 % (38.0-50.0); HEMOGLOBIN 8.9 G/DL (12.5-16.6); IMMATURE GRANULOCYTE (%) 0.6 % (0.0-0.7); LYMPHOCYTE (%) 12.5 % (15-42); LYMPHOCYTE COUNT 0.9 K/uL (1.0-2.8); MCH 36.6 PG (29.0-34.0); MCHC 33.7 G/DL (30.0-36.0); MCV 108.6 FL (86-99); MONOCYTE (%) 10.3 % (3-12); MONOCYTE COUNT 0.7 K/uL (0-0.8); NEUTROPHIL (%) 70.1 % (45-76); PLATELET COUNT 217 K/uL (156-360); RBC DIS.WIDTH-CV 13.7 % (11.8-14.6); RBC DIS.WIDTH-SD 54.3 % (39-53); RED BLOOD COUNT 2.43 M/uL (4.00-5.50); WHITE BLOOD COUNT 7.1 K/uL (4.1-10.2)
[2017-05-06 09:53] LABS: ALBUMIN 3.1 G/DL (3.2-4.8); CHLORIDE 99 MEQ/L (99-109); GFR ESTIMATE (CALCULATED) 7 mL/min/ (58.99-99999); GLUCOSE 123 mg/dL (70-99); POTASSIUM 4.6 MEQ/L (3.7-5.4); SODIUM 134 MEQ/L (136-147); UREA NITROGEN (BUN) 41 mg/dL (9-23)
[2017-05-06 09:58] LABS: CREATININE 7.6 MG/DL (0.6-1.3)
[2017-05-06 11:58] LABS: INTER. NORMALIZED RATIO 3.1
[2017-05-06 16:18] VITALS: BP 135/62
[2017-05-06 20:08] VITALS: BP 101/51
[2017-05-07 00:13] VITALS: BP 105/59
[2017-05-07 05:33] VITALS: BP 107/51
[2017-05-07 06:00] LABS: HEMATOCRIT 28.2 % (38.0-50.0); HEMOGLOBIN 9.4 G/DL (12.5-16.6); MCHC 33.3 G/DL (30.0-36.0); PLATELET COUNT 224 K/uL (156-360); RBC DIS.WIDTH-CV 13.8 % (11.8-14.6); RBC DIS.WIDTH-SD 54.4 % (39-53); RED BLOOD COUNT 2.61 M/uL (4.00-5.50)
[2017-05-07 06:26] LABS: INTER. NORMALIZED RATIO 2.2
[2017-05-07 06:49] LABS: ALBUMIN 3.2 G/DL (3.2-4.8); ALKALINE PHOSPHATASE 69 IU/L (3-129); ALT (GPT) 10 IU/L (3-49); AST (GOT) 12 IU/L (2-34); CHLORIDE 100 MEQ/L (99-109); GFR ESTIMATE (CALCULATED) 11 mL/min/ (58.99-99999); GLUCOSE 108 mg/dL (70-99); POTASSIUM 4.2 MEQ/L (3.7-5.4); SODIUM 135 MEQ/L (136-147); TOTAL BILIRUBIN 0.5 MG/DL (0.0-1.0); UREA NITROGEN (BUN) 22 mg/dL (9-23)
[2017-05-07 06:51] LABS: CREATININE 5.4 MG/DL (0.6-1.3)
[2017-05-07 07:38] VITALS: BP 128/60
[2017-05-07 10:24] VITALS: BP 101/57
[2017-05-07 15:49] VITALS: BP 100/56
[2017-05-07 19:33] VITALS: BP 99/59
[2017-05-08 00:04] VITALS: BP 111/56
[2017-05-08 07:10] LABS: INTER. NORMALIZED RATIO 2.1
[2017-05-08 07:27] LABS: APPEARANCE SL.HAZY ((CLEAR)); BILIRUBIN NEGATIVE; BLOOD NEGATIVE; COLOR YELLOW ((YELLOW)); GLUCOSE (STRIP) 150; KETONES NEGATIVE; LEUKOCYTES SMALL; NITRITE NEGATIVE; PROTEIN (STRIP) 100; UROBILINOGEN 0.2 MG/DL (0.2-1.0)
[2017-05-08 07:41] LABS: BACTERIA RARE /HPF; EPITHELIAL CELLS RARE /HPF; MUCUS NONE SEEN /LPF; RED BLOOD CELLS 0-5 /HPF (0-5); UCUL ADDED? YES
[2017-05-08 08:18] VITALS: BP 122/62
[2017-05-08 19:14] VITALS: BP 118/64
== END 2017-05-08 19:31 | DRG 193 ==
LOC: EME 15:17 → EDOF 17:50 → 3EAST 17:50 → ENRESERV 18:35 → CANRESERV 18:35 → ENRESERV 20:11 → 3EAST 21:11
PROVIDERS: Emergency Medicine; Family Medicine; Internal Medicine; Internal Medicine Nephrology
PROC: 5A1D70Z Performance of Urinary Filtration, Intermittent, Less than 6 Hours Per Day (ICD-10-PCS; principal; 2017-05-06)
DX: J18.9 Pneumonia, unspecified organism (principal); N18.6 End stage renal disease; E11.22 Type 2 diabetes mellitus with diabetic chronic kidney disease; I48.2 Chronic atrial fibrillation; I48.91 Unspecified atrial fibrillation; I95.9 Hypotension, unspecified; E03.9 Hypothyroidism, unspecified; E11.9 Type 2 diabetes mellitus without complications; G40.909 Epilepsy, unspecified, not intractable, without status epilepticus; B95.62 Methicillin resistant Staphylococcus aureus infection as the cause of diseases classified elsewhere; E66.9 Obesity, unspecified; K21.9 Gastro-esophageal reflux disease without esophagitis; D63.1 Anemia in chronic kidney disease; J20.9 Acute bronchitis, unspecified; J44.0 Chronic obstructive pulmonary disease with (acute) lower respiratory infection; I12.0 Hypertensive chronic kidney disease with stage 5 chronic kidney disease or end stage renal disease; G89.4 Chronic pain syndrome; G25.81 Restless legs syndrome; K59.09 Other constipation; F32.9 Major depressive disorder, single episode, unspecified; F41.9 Anxiety disorder, unspecified; E78.5 Hyperlipidemia, unspecified; Z99.2 Dependence on renal dialysis; I69.351 Hemiplegia and hemiparesis following cerebral infarction affecting right dominant side; Z79.01 Long term (current) use of anticoagulants; I69.354 Hemiplegia and hemiparesis following cerebral infarction affecting left non-dominant side; Z87.01 Personal history of pneumonia (recurrent); I25.2 Old myocardial infarction; Z87.891 Personal history of nicotine dependence; Z88.0 Allergy status to penicillin; Z88.8 Allergy status to other drugs, medicaments and biological substances; Z68.35 Body mass index [BMI] 35.0-35.9, adult; Y95 Nosocomial condition; E11.51 Type 2 diabetes mellitus with diabetic peripheral angiopathy without gangrene; I25.10 Atherosclerotic heart disease of native coronary artery without angina pectoris; N17.9 Acute kidney failure, unspecified
CPT/HCPCS: 31720; 36600; 71045; 80048; 80053; 80069; 80202; 81003; 82248; 82803; 83605; 83690; 84484; 85025; 85027; 85610; 85730; 87040; 87070; 87077; 87086; 87147; 87186; 87205; 94640; 94640 76; 94760; 94799; 99202; 99281; 99285; C1752; J0692; J1956; J3370

== ENCOUNTER 2017-07-12 23:07 | Inpatient (IN) | payer OTHER ==
[~2017-07-12] VITALS: Ht 167.6 cm; Wt 98.0 kg
[~2017-07-12 23:07] MED LIST changes: +ACETAMINOPHEN325 M1 PO; +CALCIUM ACETAT667 MG PO; +DIALYVITE 3,001 EACH PO; +LEVAQUIN500 MG PO; +LIPITOR40 MG PO; +LO-DOSE ASPIRIN81 M1 PO; +PROBIOTIC250 MG PO
[2017-07-12 23:51] LABS: BASOPHIL (%) 0.7 % (0-1); BASOPHIL COUNT 0.1 K/uL (0-0.1); EOSINOPHIL (%) 6.1 % (0-5); EOSINOPHIL COUNT 0.6 K/uL (0-0.3); HEMATOCRIT 31.2 % (38.0-50.0); HEMOGLOBIN 10.3 G/DL (12.5-16.6); IMMATURE GRANULOCYTE (%) 0.3 % (0.0-0.7); LYMPHOCYTE (%) 31.7 % (15-42); LYMPHOCYTE COUNT 3.2 K/uL (1.0-2.8); MCV 109.1 FL (86-99); MONOCYTE (%) 12.7 % (3-12); MONOCYTE COUNT 1.3 K/uL (0-0.8); NEUTROPHIL (%) 48.5 % (45-76); NRBC (%) 0.3 /100 WBC (0-0); PLATELET COUNT 211 K/uL (156-360); RBC DIS.WIDTH-CV 17.2 % (11.8-14.6); RBC DIS.WIDTH-SD 58.5 % (39-53); RED BLOOD COUNT 2.86 M/uL (4.00-5.50); WHITE BLOOD COUNT 10.2 K/uL (4.1-10.2)
[2017-07-12 23:58] LABS: INTER. NORMALIZED RATIO 3.2
[2017-07-13] LABS: AMYLASE 43 IU/L (1-118); CHLORIDE 99 mEq/L (99-109); POTASSIUM 4.6 mEq/L (3.7-5.4); PTT 39.5 SEC (25-37); SODIUM 142 mEq/L (136-147)
[2017-07-13 00:02] LABS: GLUCOSE 115 mg/dL (70-99)
[2017-07-13 00:05] LABS: SERUM ETHYL ALCOHOL < 10 mg/dL
[2017-07-13 00:06] LABS: CREATININE 8.2 mg/dL (0.6-1.3); GFR ESTIMATE (CALCULATED) 7 mL/min/ (58.99-99999); UREA NITROGEN (BUN) 38 mg/dL (9-23)
[2017-07-13 00:09] LABS: LIPASE 50 U/L (1.0-51.0)
[2017-07-13 00:11] LABS: TROP-I INTERPRETATION NEGATIVE; TROPONIN-I 0.02 ng/mL (0.0-0.30)
[2017-07-13] MEDS ORDERED: TUMS500 MG PO (00:22)
[2017-07-13] MEDS ORDERED: ZOFRAN4 MG PO (00:23)
[2017-07-13 03:45] VITALS: BP 120/58
[2017-07-13 03:53] LABS: HDL CHOLESTEROL 28 MG/DL (Desirable>=40); NON-HDL CHOLESTEROL 131 mg/dL (Desirable<160); TOTAL CHOLESTEROL 159 mg/dL (Desirable<200); TRIGLYCERIDES 402 MG/DL (Normal: <150)
[2017-07-13 07:46] VITALS: BP 134/71
[2017-07-13 12:30] VITALS: BP 126/73
[2017-07-13 20:22] VITALS: BP 132/67
[2017-07-14 00:38] VITALS: BP 118/64
[2017-07-14 04:00] VITALS: BP 115/57
[2017-07-14 06:13] LABS: INTER. NORMALIZED RATIO 2.5
[2017-07-14 07:42] VITALS: BP 130/61
[2017-07-14 12:00] VITALS: BP 134/62
[2017-07-14 15:15] VITALS: BP 130/67
== END 2017-07-14 18:25 | DRG 100 ==
LOC: EME 23:07 → EDOF 07-13 01:52 → ENRESERV 07-13 01:58 → EDOF 07-13 02:00 → 5SOUTH 07-13 02:00 → ENRESERV 07-13 02:25 → 5SOUTH 07-13 03:25
PROVIDERS: Emergency Medicine; Family Medicine; Internal Medicine
DX: G40.909 Epilepsy, unspecified, not intractable, without status epilepticus (principal); G45.9 Transient cerebral ischemic attack, unspecified; N18.6 End stage renal disease; N17.9 Acute kidney failure, unspecified; E11.22 Type 2 diabetes mellitus with diabetic chronic kidney disease; F03.90 Unspecified dementia, unspecified severity, without behavioral disturbance, psychotic disturbance, mood disturbance, and anxiety; I25.10 Atherosclerotic heart disease of native coronary artery without angina pectoris; K21.9 Gastro-esophageal reflux disease without esophagitis; E03.9 Hypothyroidism, unspecified; E66.9 Obesity, unspecified; G93.40 Encephalopathy, unspecified; E11.9 Type 2 diabetes mellitus without complications; I12.0 Hypertensive chronic kidney disease with stage 5 chronic kidney disease or end stage renal disease; K59.09 Other constipation; R42 Dizziness and giddiness; I48.2 Chronic atrial fibrillation; F41.9 Anxiety disorder, unspecified; F32.9 Major depressive disorder, single episode, unspecified; E78.5 Hyperlipidemia, unspecified; G25.81 Restless legs syndrome; G89.4 Chronic pain syndrome; I69.321 Dysphasia following cerebral infarction; I69.354 Hemiplegia and hemiparesis following cerebral infarction affecting left non-dominant side; I69.328 Other speech and language deficits following cerebral infarction; Z87.891 Personal history of nicotine dependence; Z99.2 Dependence on renal dialysis; Z74.01 Bed confinement status; Z68.34 Body mass index [BMI] 34.0-34.9, adult; Z82.49 Family history of ischemic heart disease and other diseases of the circulatory system; Z80.0 Family history of malignant neoplasm of digestive organs; Z99.81 Dependence on supplemental oxygen; Z79.01 Long term (current) use of anticoagulants; I25.2 Old myocardial infarction; Z87.441 Personal history of nephrotic syndrome
CPT/HCPCS: 70450; 70496; 70498; 80048; 80061; 81003; 82150; 83690; 84484; 85025; 85610; 85730; 86850; 86900; 86901; 92526 GN; 92610 GN; 99281; 99285; G0480; J1644

== ENCOUNTER 2017-10-02 17:23 | Observation (INO) | payer OTHER ==
[~2017-10-02] VITALS: Ht 167.6 cm; Wt 102.9 kg
[~2017-10-02 17:23] MED LIST changes: +TUMS500 MG PO; +ZOFRAN4 MG PO
[2017-10-02 18:38] LABS: INTER. NORMALIZED RATIO 2.2
[2017-10-02 18:40] LABS: ALBUMIN 3.8 g/dL (3.2-4.8); PTT 37.6 SEC (25-37)
[2017-10-02 18:41] LABS: CHLORIDE 98 mEq/L (99-109); POTASSIUM 4.8 mEq/L (3.7-5.4); SODIUM 140 mEq/L (136-147)
[2017-10-02 18:43] LABS: GLUCOSE 128 mg/dL (70-99); TOTAL PROTEIN 6.5 g/dL (6.4-8.3)
[2017-10-02 18:45] LABS: TOTAL BILIRUBIN 0.5 mg/dL (0.0-1.0)
[2017-10-02 18:46] LABS: ALKALINE PHOSPHATASE 115 IU/L (3-129); HEMATOCRIT 30.7 % (38.0-50.0); HEMOGLOBIN 10.5 G/DL (12.5-16.6); MCH 37.8 PG (29.0-34.0); MCHC 34.2 G/DL (30.0-36.0); MCV 110.4 FL (86-99); NRBC (%) 0.7 /100 WBC (0-0); PLATELET COUNT 261 K/uL (156-360); RBC DIS.WIDTH-CV 16.1 % (11.8-14.6); RBC DIS.WIDTH-SD 56.3 % (39-53); RED BLOOD COUNT 2.78 M/uL (4.00-5.50); WHITE BLOOD COUNT 9.9 K/uL (4.1-10.2)
[2017-10-02 18:47] LABS: CREATININE 8.4 mg/dL (0.6-1.3); GFR ESTIMATE (CALCULATED) 7 mL/min/ (58.99-99999)
[2017-10-02 18:48] LABS: AST (GOT) 22 IU/L (2-34); UREA NITROGEN (BUN) 50 mg/dL (9-23)
[2017-10-02 18:50] LABS: ALT (GPT) 31 IU/L (3-49); LIPASE 46 U/L (1.0-51.0)
[2017-10-02 18:53] LABS: TROP-I INTERPRETATION NEGATIVE; TROPONIN-I 0.19 ng/mL (0.0-0.30)
[2017-10-03 00:33] VITALS: BP 121/60
[2017-10-03 03:13] LABS: TROP-I INTERPRETATION NEGATIVE
[2017-10-03 03:27] VITALS: BP 114/56
[2017-10-03 07:10] VITALS: BP 114/55
[2017-10-03 10:20] LABS: TROP-I INTERPRETATION NEGATIVE; TROPONIN-I 0.21 ng/mL (0.0-0.30)
[2017-10-03 10:32] LABS: HEMATOCRIT 28.4 % (38.0-50.0); HEMOGLOBIN 9.6 G/DL (12.5-16.6); MCH 37.5 PG (29.0-34.0); MCHC 33.8 G/DL (30.0-36.0); MCV 110.9 FL (86-99); NRBC (%) 0.4 /100 WBC (0-0); PLATELET COUNT 217 K/uL (156-360); RBC DIS.WIDTH-CV 16.7 % (11.8-14.6); RBC DIS.WIDTH-SD 56.9 % (39-53); RED BLOOD COUNT 2.56 M/uL (4.00-5.50); WHITE BLOOD COUNT 7.3 K/uL (4.1-10.2)
[2017-10-03 11:02] LABS: ANISOCYTOSIS 2+; BASOPHIL (%) 0.7 % (0-1); BASOPHIL COUNT 0.1 K/uL (0-0.1); EOSINOPHIL (%) 4.9 % (0-5); EOSINOPHIL COUNT 0.4 K/uL (0-0.3); IMMATURE GRANULOCYTE (%) 0.3 % (0.0-0.7); LYMPHOCYTE (%) 28.4 % (15-42); LYMPHOCYTE COUNT 2.1 K/uL (1.0-2.8); MACROCYTES 2+; MONOCYTE (%) 9.7 % (3-12); MONOCYTE COUNT 0.7 K/uL (0-0.8); NEUTROPHIL COUNT 4.1 K/uL (1.8-6.4); POLYCHROMASIA 1+
[2017-10-03 13:40] LABS: ALBUMIN 3.7 G/DL (3.2-4.8); CHLORIDE 98 MEQ/L (99-109); GFR ESTIMATE (CALCULATED) 9 mL/min/ (58.99-99999); GLUCOSE 102 mg/dL (70-99); SODIUM 137 MEQ/L (136-147); UREA NITROGEN (BUN) 43 mg/dL (9-23)
[2017-10-03 13:41] LABS: CREATININE 6.5 MG/DL (0.6-1.3)
[2017-10-03 14:47] VITALS: BP 128/68
== END 2017-10-03 17:59 ==
LOC: EME 17:23 → 4SOUTH 21:35 → EDOF 21:35 → ENRESERV 21:36 → 4SOUTH 10-03 00:01
PROVIDERS: Emergency Medicine; Family Medicine; Internal Medicine Nephrology
DX: R07.9 Chest pain, unspecified (principal); I48.2 Chronic atrial fibrillation; N17.9 Acute kidney failure, unspecified; I69.354 Hemiplegia and hemiparesis following cerebral infarction affecting left non-dominant side; I12.0 Hypertensive chronic kidney disease with stage 5 chronic kidney disease or end stage renal disease; N18.6 End stage renal disease; Z99.2 Dependence on renal dialysis; K21.9 Gastro-esophageal reflux disease without esophagitis; G25.81 Restless legs syndrome; E78.5 Hyperlipidemia, unspecified; G40.909 Epilepsy, unspecified, not intractable, without status epilepticus; G89.4 Chronic pain syndrome; K59.09 Other constipation; Z79.01 Long term (current) use of anticoagulants; D63.1 Anemia in chronic kidney disease; E11.22 Type 2 diabetes mellitus with diabetic chronic kidney disease; Z90.49 Acquired absence of other specified parts of digestive tract; F41.9 Anxiety disorder, unspecified; F32.9 Major depressive disorder, single episode, unspecified; Z87.891 Personal history of nicotine dependence; Z82.49 Family history of ischemic heart disease and other diseases of the circulatory system; Z80.0 Family history of malignant neoplasm of digestive organs; Z88.0 Allergy status to penicillin; Z88.8 Allergy status to other drugs, medicaments and biological substances
CPT/HCPCS: 71045; 71275; 80053; 80069; 82948; 83690; 84484; 85025; 85027; 85610; 85730; 86850; 86900; 86901; 87641; 93005; 99281; 99285; G0257; G0378; J3010

== ENCOUNTER 2017-11-13 12:54 | Emergency (ER) | payer OTHER ==
[~2017-11-13] VITALS: Ht 167.6 cm; Wt 96.4 kg
[2017-11-13 15:44] VITALS: BP 106/75
== END 2017-11-13 16:14 | disposition left against medical advice (07) ==
LOC: EME 12:54
DX: R55 Syncope and collapse (principal); Z53.29 Procedure and treatment not carried out because of patient's decision for other reasons; I69.321 Dysphasia following cerebral infarction; E78.5 Hyperlipidemia, unspecified; F03.90 Unspecified dementia, unspecified severity, without behavioral disturbance, psychotic disturbance, mood disturbance, and anxiety; F41.9 Anxiety disorder, unspecified; I25.10 Atherosclerotic heart disease of native coronary artery without angina pectoris; I25.2 Old myocardial infarction; I73.9 Peripheral vascular disease, unspecified; J43.9 Emphysema, unspecified; J45.909 Unspecified asthma, uncomplicated; K21.9 Gastro-esophageal reflux disease without esophagitis; Z99.2 Dependence on renal dialysis; Z88.0 Allergy status to penicillin; Z87.891 Personal history of nicotine dependence
CPT/HCPCS: 71045; 80053; 81003; 84484; 85025; 85610; 85730; 93005; 99281; 99284